=== PATIENT | female | born 1970 | race Caucasian/White ===

== ENCOUNTER 2018-10-29 18:30 | Emergency (ER) | payer OTHER ==
--- NOTE | 2018-10-29 18:36 | PDOC ---
History of Present Illness - General Chief Complaint: Chest Pain Stated Complaint: CHEST HEAVINESS Time Seen by Provider: 10/29/18 18:36 History Source: Patient - History of Present Illness Initial Comments: 10/29/18 19:04 48 year old female with a PMH of GERD presents to the ED with a c/o chest pressure. Patient works as schoolteacher and Past History - Past Medical History Allergies/Adverse Reactions: Allergies Allergy/AdvReac Type Severity Reaction Status Date / Time No Known Allergies Allergy Verified 10/29/18 18:31 Home Medications: Ambulatory Orders Dulaglutide [Trulicity] 1.5 mg SQ WEEKLY 10/29/18 Metformin HCl [Glucophage] 500 mg PO BID 10/29/18 ED Treatment Course - LABORATORY CBC & Chemistry Diagram: 10/29/18 18:53 10/29/18 18:53 *DC/Admit/Observation/Transfer - Discharge Dispostion Condition at time of disposition: Stable - Referrals - Patient Instructions - Post Discharge Activity
[2018-10-29] MEDS ORDERED: ASPIRIN 81 MG CHEWABLE TABLETS PO ONE (18:40)
[2018-10-29 18:43] VITALS: TEMP 98.1; BMI 34.4
[2018-10-29] MEDS ORDERED: ASPIRIN 81 MG CHEWABLE TABLETS ONE (18:58)
[2018-10-29 19:07] LABS: BASO % 0.8 % (0-2.0); EOS % 0.6 % (0-4.5); HEMATOCRIT 43.2 % (32.4-45.2); HEMOGLOBIN 14.4 GM/dl (10.7-15.3); LYMPH % 25.2 % (8-40); MCH 30.7 pg (25.7-33.7); MCHC 33.3 g/dl (32.0-36.0); MEAN CELL VOLUME 92.2 fl (80-96); MEAN PLT VOLUME 8.8 fl (7.5-11.1); MONO % 3.5 % (3.8-10.2); NEUT % 69.9 % (42.8-82.8); PLATELET COUNT 347 K/MM3 (134-434); RBC 4.68 M/mm3 (3.60-5.2); RDW 13.7 % (11.6-15.6); WHITE BLOOD COUNT 11.5 K/mm3 (4.0-10.8)
[2018-10-29 19:18] LABS: ALBUMIN 3.6 g/dl (3.4-5.0); BILIRUBIN,TOTAL 0.8 mg/dl (0.2-1); CALCIUM 9.1 mg/dl (8.5-10); CREATININE 0.7 mg/dl (0.55-1.3); POTASSIUM 4.2 mmol/L (3.5-5.1); TOT PROT 7.3 g/dl (6.4-8.2)
--- NOTE | 2018-10-29 19:25 | PDOC ---
Documentation entered by Yamila Stapleton SCRIBE, acting as scribe for Megan Pedraza MD. Megan Pedraza MD: This documentation has been prepared by the Daya mahoney Brenda, SCRIBE, under my direction and personally reviewed by me in its entirety. I confirm that the documentation accurately reflects all work, treatment, procedures, and medical decision making performed by me. Attending Attestation - Resident Resident Name: JaymeShilpi - ED Attending Attestation I have performed the following: I have examined & evaluated the patient, The case was reviewed & discussed with the resident, I agree w/resident's findings & plan, Exceptions are as noted - HPI HPI: 10/29/18 18:43 The patient is a 48 year old female, with a significant PMH of DM (on metformin 2/day) who presents to the emergency department from [facility] with nausea accompanied by a feeling of fullness and decreased P.O intake since this afternoon. The patient notes having decreased P.O intake for a couple of days with a feeling of being full upon eating and feeling like food wasnt properly digested, secondary to chest discomfort. Around 2:30pm, she reports having a hard conversation with someone, at which time, she had an episode of a productive bilious cough, and she felt constricted, unable to breathe or speak and diaphoresis, lasting 2-3 minutes. The patient reports inducing emesis to better symptoms, to no avail. She also notes clamming of the hands. The patient reports going to [facility], where an EKG and chest X-ray was done and she was advised to come to the ED for further evaluation. She also admits to an acute onset of nasal congestion earlier today. She also notes having hiccups last night. The patient denies recent travel. Denies history of P.E and DVT. Denies fever, diarrhea and constipation. Denies dysuria, frequency, urgency and hematuria. Allergies: NKA Family History: Paternal CHF, first MD at 33 years old. She reports having an echo done 4-5 years ago. Social history: Non- smoker. PCP: Dr. Andrews Lining Caser: Dr. Graevs - Physicial Exam PE: 10/29/18 19:24 awake alert lungs clear bilat heart rrr no mrg abd soft nt nd ext wwp no edema. no calf tenderness. symmetric pulses. nuero alert oriented x 3 - Medical Decision Making 10/29/18 19:24 48 yo F h/o DM, fam h/o cad, here with cough chest fullness, gerd like sxs. cough. differential includes viral uri, infection, acs. plan ekg labs asa, cxr. will damien require short observation for serial troponins. signed out to oncoming attending. pending labs and cxr results. EKG unremarkable. Heart Score/ECG Review #1 General ECG Interpretation: Sinus Rhythm, Normal Rate, Normal Intervals, No acute ischemic changes
--- NOTE | 2018-10-29 19:31 | PDOC ---
*Physical Exam - Vital Signs Last Vital Signs Temp Pulse Resp BP Pulse Ox 98.1 F 89 18 108/88 99 10/29/18 18:30 10/29/18 18:30 10/29/18 18:30 10/29/18 18:30 10/29/18 18:30 ED Treatment Course - LABORATORY CBC & Chemistry Diagram: 10/29/18 18:53 10/29/18 18:53 - ADDITIONAL ORDERS Additional order review: Laboratory Results 10/29/18 10/29/18 18:53 18:53 Sodium 137 Potassium 4.2 Chloride 101 Carbon Dioxide 27 Anion Gap 9 BUN 12.0 Creatinine 0.7 Est GFR (CKD-EPI)AfAm 117.91 Est GFR (CKD-EPI)NonAf 101.74 Random Glucose 94 Calcium 9.1 Total Bilirubin 0.8 AST 20 ALT 23 Alkaline Phosphatase 103 Troponin I < 0.03 Total Protein 7.3 Albumin 3.6 10/29/18 18:53 RBC 4.68 MCV 92.2 MCHC 33.3 RDW 13.7 MPV 8.8 Neutrophils % 69.9 Lymphocytes % 25.2 Monocytes % 3.5 L Eosinophils % 0.6 Basophils % 0.8 - Medications Given in the ED: ED Medications Discontinued Medications Generic Name Dose Route Start Last Admin Trade Name Freq PRN Reason Stop Dose Admin Aspirin 324 mg 10/29/18 18:40 10/29/18 18:59 Asa - PO 10/29/18 18:41 324 mg ONCE ONE Administration Progress Note - Progress Note Progress Note: Care of this patient received from . Patient continued to be comfortable without development of new symptoms. Second troponin level drawn at approximately 10:30 PM: No elevation found. Results discussed with the patient. She states that she has not had any further coughing this evening while being in the emergency room. She thinks that she may have gastroesophageal reflux and that her symptoms frequently occur after meals. She asked for referral to a map maker. She was given referral information for Dr. Schmid. Gen. recommendations to avoid reflux symptoms is cost with the patient including avoidance of trigger foods and elevation of her head at night. The patient will not go to work tomorrow (states that she does not need a work note for this) and call Dr. Schmid's office to arrange follow-up. She should also follow-up with her general medical doctor within the next 5 days. She has any further chest pain/shortness of breath/palpitation or weakness, she should return to the ER *DC/Admit/Observation/Transfer Diagnosis at time of Disposition: Atypical chest pain - Discharge Dispostion Disposition: HOME Condition at time of disposition: Stable - Referrals Referrals: Jamarcus Schmid MD [Staff Physician] - - Patient Instructions Printed Discharge Instructions: DI for Atypical Chest Pain, GERD Diet Additional Instructions: Rest, drink plenty of water No work tomorrow Keep head elevated at night Avoid coffee/acidic foods/alcohol/chocolate, especially in the evening Follow-up with Dr. Schmid (map maker); call office in a.m. to arrange follow-up Follow-up with your general doctor within the next 3-4 days - Post Discharge Activity
[2018-10-30 09:07] VITALS: BP 109/67; PULSE 74
--- NOTE | 2018-10-30 13:26 | EKG ---
Test Reason : Blood Pressure : / mmHG Vent. Rate : 089 BPM Atrial Rate : 089 BPM P-R Int : 136 ms QRS Dur : 068 ms QT Int : 364 ms P-R-T Axes : 047 -01 018 degrees QTc Int : 442 ms NORMAL SINUS RHYTHM WITH SINUS ARRHYTHMIA POSSIBLE ANTERIOR INFARCT , AGE UNDETERMINED ABNORMAL ECG NO PREVIOUS ECGS AVAILABLE Confirmed by BRENDAN MUÑIZ MD ([id number]) on 10/30/2018 1:25:57 PM Referred By: DR ANDREWS Confirmed By:BRENDAN MUÑIZ MD
== END 2018-10-29 23:36 | disposition home or self-care (01) ==
LOC: FER 18:30
DX: R07.89 Other chest pain (principal); E11.9 Type 2 diabetes mellitus without complications; K21.9 Gastro-esophageal reflux disease without esophagitis
CPT/HCPCS: 36415; 71046-TC-FY; 80053; 84484; 85025; 93005; 99285-25